=== PATIENT | male | born 1960 | race African-American/Black ===

== ENCOUNTER 2016-11-19 18:31 | Emergency (ER) | payer MEDICARE, MEDICAID ==
[~2016-11-19] VITALS: Ht 175.3 cm; Wt 74.8 kg
[2016-11-19] MEDS ORDERED: PROMETHAZINE HC25 M1 ORAL (19:22)
[2016-11-19] MEDS ORDERED: AMOXICILLIN500 MG ORAL (19:24)
[2016-11-19] MEDS ORDERED: PROMETHAZINE-D118 ML ORAL (19:24)
--- NOTE | 2016-11-19 19:32 | Emergency Room Report ---
History of Present Illness General Chief Complaint: Sore Throat Source: Patient Present Illness HPI The patient is a 56-year-old male who denies any medical history presenting for sore throat which began 10 days prior. The patient states he was seen at another hospital 1 week prior and given cough medication only. Patient states this has not helped. Pain is described as negative and dull ache to the back of the throat and is worse with swallowing. Patient denies any radiating pain. Patient also admits to productive cough with green and yellow sputum. Patient admits to subjective fevers and chills. The patient denies any sick contacts or recent travel. The patient denies any other symptoms including nausea, vomiting, chest pain, shortness of breath Allergies: Coded Allergies: No Known Allergies (Unverified , 11/19/16) Patient History Past Medical History: see triage record Pertinent Family History: none Reviewed Nursing Documentation: PMH: Agreed, PSxH: Agreed Nursing Documentation-PMH Hx Hypertension: Yes Hx Gastrointestinal Problems: Yes - GI Ulcers Review of Systems All Other Systems: negative except mentioned in HPI Physical Exam Vital Signs Date Time Temp Pulse Resp B/P Pulse Ox O2 Delivery O2 Flow Rate FiO2 11/19/16 19:16 98.1 87 16 134/89 99 Room Air Sp02 EP Interpretation: reviewed, normal General Appearance: no apparent distress, alert, GCS 15, non-toxic Head: normocephalic, atraumatic Eyes: bilateral eye PERRL, bilateral eye normal inspection ENT: hearing grossly normal, no angioedema, normal voice, uvula midline, tonsillar swelling, pharyngeal erythema Neck: full range of motion, supple/symm/no masses Respiratory: chest non-tender, lungs clear, normal breath sounds, no wheezing, speaking full sentences Musculoskeletal: back normal, gait/station normal, normal range of motion, non- tender Neurologic: alert, oriented x3, responsive, motor strength/tone normal, sensory intact, speech normal Psychiatric: judgement/insight normal, memory normal, mood/affect normal, no suicidal/homicidal ideation Skin: normal color, no rash, warm/dry, well hydrated Lymphatic: adenopathy - cervical Medical Decision Making PA Attestation Dr. Gonzalez is my supervising physician. Patient management was discussed with my supervising physician Diagnostic Impression: Primary Impression: Pharyngitis ER Course The patient is a 56-year-old male who denies any medical history presenting for sore throat which began 10 days prior Differential diagnosis include but not limited to pharyngitis, sinusitis, AOM, bronchitis, PNA Physical exam: Vitals within normal limits. Afebrile. No apparent distress HEENT exam: There is bilateral tonsillar edema, erythema. Exudate of R tonsil. Uvula midline. Moist mucous membranes. There is bilateral cervical lymphadenopathy. Lungs are clear to auscultation bilaterally Skin is warm and dry. No rash The patient will be discharged home with a prescription for amoxicillin, and cough medication and is given ER precautions. Patient will followup with primary care Last Vital Signs Date Time Temp Pulse Resp B/P Pulse Ox O2 Delivery O2 Flow Rate FiO2 11/19/16 19:16 98.1 87 16 134/89 99 Room Air Status: improved Disposition: HOME, SELF-CARE Condition: Improved Scripts D-Methorphan Hb/Prometh Hcl* (PROMETHAZINE-DM SYRUP*) 118 Ml Syrup 5 ML ORAL Q6H Y for For Cough, #118 ML 0 Refills Prov: REEMA BURK 11/19/16 Amoxicillin* (AMOXIL*) 500 Mg Capsule 500 MG ORAL Q12HR, #20 CAP Prov: REEMA BURK 11/19/16 Patient Instructions: Pharyngitis Additional Instructions: I discussed my findings with the patient. All questions and concerns have been answered. Treatment and medication compliance have been addressed. I advised the patient that they need to follow up with PMD in 3-5 days. Return to ED if pain remains or worsens, cough worsens or remains, you notice blood in your sputum, you notice wheezing, you experience a fever, or if needed for any reason. Patient verbalized understanding of discharge instructions. REEMA BURK Nov 19, 2016 19:32
[2016-11-19 19:33] VITALS: BP 128/84
[2016-11-19 20:05] VITALS: BP 128/84
== END 2016-11-19 20:05 | disposition home or self-care (01) ==
LOC: EMR 19:21
DX: J02.9 Acute pharyngitis, unspecified (principal); I10 Essential (primary) hypertension
CPT/HCPCS: 99284

== ENCOUNTER 2016-12-07 23:36 | Emergency (ER) | payer MEDICARE, MEDICAID ==
[~2016-12-07] VITALS: Ht 175.3 cm; Wt 72.6 kg
[~2016-12-07 23:36] MED LIST: AMOXICILLIN500 MG ORAL; PROMETHAZINE HC25 M1 ORAL; PROMETHAZINE-D118 ML ORAL
[2016-12-08 00:02] VITALS: BP 151/92
[2016-12-08] MEDS ORDERED: CLARITIN10 M2 ORAL (00:30)
[2016-12-08] MEDS ORDERED: PROMETHAZINE-D118 ML ORAL (00:30)
[2016-12-08 00:45] VITALS: BP 153/91
--- NOTE | 2016-12-08 02:37 | Emergency Room Report ---
History of Present Illness General Chief Complaint: Sore Throat Source: Patient Present Illness HPI This is a 56-year-old male who presented after increased sore throat. The patient gradual onset of symptoms. Patient had nonproductive cough patient was noted to have. Patient was noted to have previously taking antibiotics. He had recently had eye trauma to his left thigh and had been seen by environmental permitting specialist in a given eyedrops.The patient denied any shortness of breath. Allergies: Coded Allergies: No Known Allergies (Unverified , 11/19/16) Patient History Past Medical History: see triage record Reviewed Nursing Documentation: PMH: Agreed, PSxH: Agreed Nursing Documentation-PMH Hx Hypertension: Yes Review of Systems All Other Systems: negative except mentioned in HPI Physical Exam Vital Signs Date Time Temp Pulse Resp B/P Pulse Ox O2 Delivery O2 Flow Rate FiO2 12/07/16 23:58 98.1 84 18 151/92 98 Room Air General Appearance: well appearing, no apparent distress, alert, GCS 15, non- toxic Head: normocephalic, atraumatic ENT: hearing grossly normal, normal voice Neck: full range of motion, supple Respiratory: no respiratory distress, speaking full sentences Cardiovascular #1: normal peripheral pulses, regular rate, rhythm, no edema, no gallop Gastrointestinal: normal inspection, normal bowel sounds, non tender, soft Musculoskeletal: no calf tenderness Neurologic: normal gait Psychiatric: mood/affect normal Skin: no rash Medical Decision Making Diagnostic Impression: Primary Impression: Bronchitis ER Course Patient presented for cough.Differential diagnosis included but was not limited to bronchitis, pneumonia, pulmonary embolism, pericarditis, asthma, foreign body. Patient's benign exam and does not appear to require any further imaging or laboratory testing at this time. Patient was given prescription for cough medications. Prescription for Claritin. The patient is advised to follow up with primary care doctor in 1-2 days. Patient is advised to return if any worsening condition or if any changes in status that are concerning. Last Vital Signs Date Time Temp Pulse Resp B/P Pulse Ox O2 Delivery O2 Flow Rate FiO2 12/08/16 00:45 98.1 83 18 153/91 98 Room Air Status: improved Disposition: HOME, SELF-CARE Condition: Stable Scripts Loratadine (CLARITIN) 10 Mg Capsule 10 MG ORAL DAILY, #20 CAP Prov: Vinnie Juarez 12/08/16 D-Methorphan Hb/Prometh Hcl* (PROMETHAZINE-DM SYRUP*) 118 Ml Syrup 5 ML ORAL Q6H Y for For Cough, #118 ML 0 Refills Prov: Vinnie Juarez 12/08/16 Referrals: NOT CHOSEN IPA/,REFERRING (PCP) Patient Instructions: Acute Bronchitis Vinnie Juarez Dec 08, 2016 02:37
== END 2016-12-08 00:45 | disposition home or self-care (01) ==
LOC: EMR 23:55
DX: J40 Bronchitis, not specified as acute or chronic (principal); I10 Essential (primary) hypertension
CPT/HCPCS: 99284

== ENCOUNTER 2017-01-24 21:54 | Emergency (ER) | payer MEDICARE, MEDICAID ==
[~2017-01-24] VITALS: Ht 175.3 cm; Wt 72.6 kg
[~2017-01-24 21:54] MED LIST changes: +CLARITIN10 M2 ORAL
[2017-01-24] MEDS ORDERED: NKM (22:07)
[2017-01-24 22:10] VITALS: BP 165/84
[2017-01-24] MEDS ORDERED: Mylanta II UD 30ml ORAL ONE (22:30)
[2017-01-24] MEDS ORDERED: OMEPRAZOLE40 M1 ORAL (22:30)
[2017-01-24] MEDS ORDERED: Lidocaine 2% Visc 15ml soln ORAL ONE (22:30)
[2017-01-24] MEDS ORDERED: MAALOX MAXIMUM355 M1 PO (22:32)
--- NOTE | 2017-01-24 22:32 | Emergency Room Report ---
History of Present Illness General Chief Complaint: Abdominal Pain Source: Patient Present Illness HPI This is a 57-year-old male with history of peptic ulcer disease. He has a history of GI bleeding before. He had previous endoscopy but it was done in december years ago. He presents with epigastric pain ongoing for last few days. He went to [facility] last night. Blood work was unremarkable. He was prescribe omeprazole and Pepcid. He did not want any narcotic because he is in a recovery program for addiction. He still having abdominal pain. Epigastric area. Worse with eating. No nausea no vomiting. No diarrhea. No black stool. Pain is 8/10. Denies any other complaint. Allergies: Coded Allergies: No Known Allergies (Unverified , 11/19/16) Patient History Past Medical History: see triage record, old chart reviewed Past Surgical History: other Pertinent Family History: none Social History: Denies: alcohol use, smoking Immunizations: other Reviewed Nursing Documentation: PMH: Agreed, PSxH: Agreed Nursing Documentation-PMH Hx Hypertension: Yes Review of Systems Gastrointestinal: Reports: abdominal pain Physical Exam Vital Signs Date Time Temp Pulse Resp B/P Pulse Ox O2 Delivery O2 Flow Rate FiO2 01/24/17 22:02 98.1 80 16 165/84 97 Room Air vitals with hypertension Sp02 EP Interpretation: reviewed, normal General Appearance: well appearing, no apparent distress, alert Head: normocephalic, atraumatic Eyes: bilateral eye EOMI, bilateral eye PERRL ENT: hearing grossly normal, normal pharynx Neck: full range of motion, supple, no meningismus Respiratory: chest non-tender, lungs clear, normal breath sounds Cardiovascular #1: regular rate, rhythm, no murmur Gastrointestinal: normal bowel sounds, no mass, no organomegaly, no bruit, non- distended, tenderness - Epigastric Musculoskeletal: back normal, gait/station normal, normal range of motion Psychiatric: mood/affect normal Skin: warm/dry Medical Decision Making Diagnostic Impression: Primary Impression: Abdominal pain Qualified Codes: R10.13 - Epigastric pain ER Course Present with epigastric pain. Most likely peptic ulcer disease. I did a bedside ultrasound and gallbladder was normal. Negative Montoya sign. No evidence of obstruction. He already had blood work done last night and was told was normal. I see no need for repeat he looks well otherwise. No evidence of obstruction or acute abdomen. Last Vital Signs Date Time Temp Pulse Resp B/P Pulse Ox O2 Delivery O2 Flow Rate FiO2 01/24/17 22:10 98.1 87 16 165/84 97 Room Air Status: improved Disposition: HOME, SELF-CARE Condition: Stable Scripts Mag Hydrox/Al Hydrox/Simeth (MAALOX MAXIMUM STRENGTH SUSP) 355 Ml Oral.susp 30 ML PO TID, #355 ML Prov: LYSSA SCHNEIDER M.D. 01/24/17 Omeprazole (OMEPRAZOLE) 40 Mg Capsule. 40 MG ORAL TWICE A DAY, #30 CAP Prov: LYSSA SCHNEIDER M.D. 01/24/17 Additional Instructions: Followup with your doctor in a week. You may need a referral to see a GI DrLou for endoscopy. Return if symptom worsen. LYSSA SCHNEIDER M.D. Jan 24, 2017 22:32
== END 2017-01-24 22:50 | disposition home or self-care (01) ==
LOC: EMR 22:50
DX: R10.13 Epigastric pain (principal); Z87.11 Personal history of peptic ulcer disease; I10 Essential (primary) hypertension
CPT/HCPCS: 99284